=== PATIENT | female | born 1965 | race Caucasian/White ===

== ENCOUNTER → 2017-01-27 | Outpatient (CLI) | payer BC ==
[~2017-01-27] MED LIST: ACETAMINOPHEN PO; AMBIEN PO; LOC PO; PHENTERMINE PO
--- NOTE | ~2017-01-27 | US128 ---
[id number] [address] [address] [id number] O MR#: [id number] Acc #: [id number] NAME: LUIS LINCOLN : 1965 SEX: F STUDY DATE/TIME: 01/27/2017 13:18 UNIT: [facility] ROOM: STUDY DESCRIPTION: Thyroid Attending Physician: David Tovar M.D. Referring Physician: David Tovar M.D. Ordering Physician: David Tovar M.D. Primary Care Physician: David Tovar M.D. MEDICAL IMAGING REPORT This report is preliminary unless electronic signature is present. EXAM Thyroid sonogram. CLINICAL HISTORY 51-year-old female with intermittent neck discomfort. Known thyroid nodules. COMPARISON Thyroid sonogram, 06/14/2012. FINDINGS Real-time examination demonstrates the thyroid gland to be of normal size and echogenicity. The right lobe measures 0.8 x 1.6 x 3.4 cm and the left lobe measures 1.2 x 1.4 x 4.4 cm. Two nodules are seen on the left lobe of the thyroid gland, one in the inferior aspect of the gland measuring 4.5 x 5.1 x 3.8 mm. This appears anechoic and cystic in nature, and is of no clinical concern. The second nodule is seen in the midportion of the left lobe of the thyroid gland and measures 5.4 x 6.9 x 8.1 mm. This nodule is iso- to hypoechoic to background thyroid tissue but appears solid. This most likely represents an adenoma. This is felt to correspond to the mixed solid cystic nodule as noted on the patient's previous sonogram of 2011 and does not appear significantly changed in size. Color Doppler demonstrates peripheral hypervascularity. Extrathyroidal soft tissues unremarkable. IMPRESSION 8 mm nodule in the midpole of the left lobe of thyroid gland with imaging features most compatible with a thyroid adenoma. This is felt to correspond to a mixed solid cystic lesion as noted on the 2012 thyroid sonogram and though the cystic component is less prominent, the overall size is not significantly changed and its stability over this period of time is consistent with benign etiology. No other significant abnormalities are identified. Overall gland size within normal limits. Dictated by.Yvon Vazquez M.D. THIS IS AN ELECTRONICALLY VERIFIED REPORT Cheko Vazquez M.D. at 01/31/2017 10:16 AM Steffanie TD: 01/27/2017 20:51 JOB #: [id number] MEDICAL IMAGING REPORT Page 1 of 1
== END | disposition home or self-care (01) ==
LOC: SGUS 13:05
DX: E04.1 Nontoxic single thyroid nodule (principal)
CPT/HCPCS: 76536